=== PATIENT | female | born 1945 | race Caucasian/White ===

== ENCOUNTER 2016-06-12 13:22 | Outpatient (CLI) | payer OTHER | END 2016-06-12 18:08 | disposition home or self-care (01) | LOC: SMA 13:22 | PROVIDERS: ATTEND Family Medicine | DX: Z12.31 Encounter for screening mammogram for malignant neoplasm of breast (principal) | CPT/HCPCS: 77067; G0202 ==

== ENCOUNTER 2017-07-21 12:45 | Outpatient (CLI) | payer OTHER | END 2017-07-21 20:25 | disposition home or self-care (01) | LOC: SMA 12:45 | PROVIDERS: ATTEND Family Medicine | DX: Z12.31 Encounter for screening mammogram for malignant neoplasm of breast (principal) | CPT/HCPCS: 77067 ==

== ENCOUNTER 2017-07-23 13:31 | Outpatient (CLI) | payer OTHER | END 2017-07-23 20:33 | disposition home or self-care (01) | LOC: SMA 13:31 | PROVIDERS: ATTEND Family Medicine | DX: R92.8 Other abnormal and inconclusive findings on diagnostic imaging of breast (principal) | CPT/HCPCS: 77065 ==

== ENCOUNTER 2018-01-19 13:24 | Outpatient (CLI) | payer OTHER | END 2018-01-19 17:42 | disposition home or self-care (01) | LOC: SMA 13:24 | PROVIDERS: ATTEND Family Medicine | DX: R92.1 Mammographic calcification found on diagnostic imaging of breast (principal) | CPT/HCPCS: 77065 ==

== ENCOUNTER 2018-08-01 12:28 | Outpatient (CLI) | payer OTHER | END 2018-08-01 21:18 | disposition home or self-care (01) | LOC: SMA 12:28 | PROVIDERS: ATTEND Family Medicine | DX: Z12.31 Encounter for screening mammogram for malignant neoplasm of breast (principal); R92.1 Mammographic calcification found on diagnostic imaging of breast | CPT/HCPCS: 77067 ==